=== PATIENT | female | born 1990 | race Caucasian/White ===

== ENCOUNTER 2017-06-17 18:18 | Emergency (ER) | payer MEDICAID ==
[~2017-06-17] VITALS: Ht 162.6 cm; Wt 82.7 kg
[~2017-06-17 18:18] MED LIST: ASPI1TAB2 PO; BECL8.7A3 IH; LEVA15HF4 IH; TRAM50TA2 PO
[2017-06-17] MEDS ORDERED: ketorolac trometh inj. 60 MG/2 ML VIAL IM ONE (18:35)
[2017-06-17] MEDS ORDERED: TRAM50TA2 PO (19:11)
[2017-06-17] MEDS ORDERED: traMADol 50MG tablet PO ONE (19:25)
[2017-06-17 19:31] VITALS: BP 137/67
== END 2017-06-17 19:34 | disposition home or self-care (01) ==
LOC: ER 18:20
DX: M54.5 Low back pain (principal); J45.909 Unspecified asthma, uncomplicated; F15.10 Other stimulant abuse, uncomplicated; Z90.49 Acquired absence of other specified parts of digestive tract; Z79.82 Long term (current) use of aspirin; Z79.899 Other long term (current) drug therapy; Z88.0 Allergy status to penicillin; Z88.2 Allergy status to sulfonamides; Z88.5 Allergy status to narcotic agent; W01.0XXA Fall on same level from slipping, tripping and stumbling without subsequent striking against object, initial encounter; Y93.89 Activity, other specified; Y92.89 Other specified places as the place of occurrence of the external cause; Y99.8 Other external cause status
CPT/HCPCS: 72100; 96372; 99284; J1885

== ENCOUNTER 2017-07-18 17:20 | Emergency (ER) | payer SELFPAY ==
[~2017-07-18] VITALS: Ht 162.6 cm; Wt 84.2 kg
[2017-07-18 17:24] VITALS: BP 116/80
[2017-07-18] MEDS ORDERED: HYDR-3965 PO (20:17)
== END 2017-07-18 20:36 | disposition home or self-care (01) ==
LOC: ER 17:21
DX: M77.9 Enthesopathy, unspecified (principal); J45.909 Unspecified asthma, uncomplicated; F15.10 Other stimulant abuse, uncomplicated; Z90.49 Acquired absence of other specified parts of digestive tract; Z88.0 Allergy status to penicillin; Z88.2 Allergy status to sulfonamides; Z88.5 Allergy status to narcotic agent; Z91.040 Latex allergy status; Z79.82 Long term (current) use of aspirin; Z79.899 Other long term (current) drug therapy
CPT/HCPCS: 29125; 99283; A4565